=== PATIENT | male | born 1950 | race Caucasian/White ===

== ENCOUNTER 2019-04-12 09:08 | Day surgery (SDC) | payer MEDICARE, MEDICAID ==
[2019-04-12] VITALS (12 sets, daily range): BP systolic 108–126; BP diastolic 53–85
[~2019-04-12] VITALS: Ht 182.9 cm; Wt 85.4 kg
[~2019-04-12 09:08] MED LIST: APIX5TAB3 PO; DILT240C90 PO; FLEC100T2 PO
[2019-04-12 09:38] LABS: BASOPHILS % (AUTO) 0.8 % (0-1); EOSINOPHILS # (AUTO) 0.1 X10'3 (0-0.9); EOSINOPHILS % (AUTO) 1.4 % (0-6); HEMATOCRIT 45.2 % (42.0-52.0); HEMOGLOBIN 15.9 g/dl (14.0-17.9); LYMPHOCYTES # (AUTO) 1.6 X10'3 (1.1-4.8); MEAN CORPUSCULAR HEMOGLOBIN 36.2 PG (27.0-31.0); MEAN CORPUSCULAR HGB CONC 35.2 g/dL (33.0-36.5); MEAN CORPUSCULAR VOLUME 102.9 FL (78-98); MEAN PLATELET VOLUME 7.7 FL (7.4-10.4); MONOCYTES # (AUTO) 0.6 X10'3 (0-0.9); MONOCYTES % (AUTO) 11.9 % (2-12); NEUTROPHILS # (AUTO) 2.6 X10'3 (1.8-7.7); NEUTROPHILS % (AUTO) 52.9 % (42-75); PLATELET COUNT 170 X10'3 (140-440); RED BLOOD COUNT 4.39 X10'6 (4.70-6.10); RED CELL DISTRIBUTION WIDTH 13.4 % (11.5-14.5); WHITE BLOOD COUNT 4.9 X10'3 (4.5-11.0)
[2019-04-12] MEDS ORDERED: normal saline 1,000 ML IV SCH (09:45)
[2019-04-12] MEDS ORDERED: diphenhydrAMINE 25mg capsule PO PRN (09:45)
[2019-04-12 09:51] LABS: ALBUMIN 3.8 G/DL (3.4-5.0); ANION GAP 7 (8-16); BLOOD UREA NITROGEN 18 MG/DL (7-18); BUN/CREATININE RATIO 17.6 (5.4-32.0); CALCIUM 9.4 MG/DL (8.5-10.1); CHLORIDE 104 MMOL/L (99-107); CREATININE 1.02 MG/DL (0.60-1.10); GLUCOSE 102 MG/DL (70-104); POTASSIUM 4.7 MMOL/L (3.5-5.1); SODIUM 138 MMOL/L (135-145); TOTAL CARBON DIOXIDE 27.5 MMOL/L (24-32); eGFR 73 ML/MIN
[2019-04-12] MEDS ORDERED: MIDAZolam 1mg/ml 10ml vial IV ONE (09:55)
[2019-04-12] MEDS ORDERED: fentaNYL/PF 50MCG/1 ML 2ML syringe IV ONE (09:55)
[2019-04-12] MEDS ORDERED: NEO/3.5O18 (10:08)
[2019-04-12] MEDS ORDERED: METO-384 PO (10:08)
[2019-04-12] MEDS ORDERED: LISI-604 PO (10:08)
== END 2019-04-12 14:15 | disposition home or self-care (01) ==
LOC: SSTAY O 09:08
PROVIDERS: ATTEND Internal Medicine Cardiovascular Disease
DX: I08.1 Rheumatic disorders of both mitral and tricuspid valves (principal); I48.91 Unspecified atrial fibrillation; I25.10 Atherosclerotic heart disease of native coronary artery without angina pectoris; I42.9 Cardiomyopathy, unspecified; I48.3 Typical atrial flutter; Z98.890 Other specified postprocedural states; Z79.899 Other long term (current) drug therapy; Z82.49 Family history of ischemic heart disease and other diseases of the circulatory system; Z80.1 Family history of malignant neoplasm of trachea, bronchus and lung; Z79.01 Long term (current) use of anticoagulants
CPT/HCPCS: 36415; 80048; 83735; 85025; 85610; 93312; J2250; J3010; J7030